=== PATIENT | female | born 1980 | race Caucasian/White ===

== ENCOUNTER 2023-09-27 19:33 | Emergency (ER) | payer OTHER, SELFPAY ==
[2023-09-27 19:43] VITALS: BP 158/89
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
[2023-09-27] MEDS: MOTRIN 800 MG PO (21:42)
== END 2023-09-27 21:46 | disposition home or self-care (01) ==
LOC: EMR 19:33
PROVIDERS: EMERGENCY PHYSICIAN Emergency Medicine
DX: S89.92XA Unspecified injury of left lower leg, initial encounter (principal); S80.212A Abrasion, left knee, initial encounter; M25.462 Effusion, left knee; M25.551 Pain in right hip; Y09 Assault by unspecified means; Y93.89 Activity, other specified; Y92.149 Unspecified place in prison as the place of occurrence of the external cause; Y99.0 Civilian activity done for income or pay; R03.0 Elevated blood-pressure reading, without diagnosis of hypertension; D68.51 Activated protein C resistance
CPT/HCPCS: 99283; 73502; 73564

== ENCOUNTER 2024-10-30 14:27 | Emergency (ER) | payer OTHER, SELFPAY ==
[2024-10-30 14:29] VITALS: BP 135/96
--- NOTE | 2024-10-30 15:27 | ED.GENMED ---
History of Present Illness
General
Chief Complaint: Musculo-Skeletal Complaint
Source: patient
Time Seen by Provider: 10/30/24 15:17
History of Present Illness
History of Present Illness:
43-year-old female with past medical history of factor V Leiden deficiency presenting to the emergency department for evaluation after she was walking down steps and did not realize there was a wet floor underneath her causing her left knee to
buckle now with pain along the medial portion of the left knee. Patient's main concern is that she had ACL repair done in this same knee 1 year ago at [facility]. This injury also occurred at work. Patient has been able to ambulate since. No other
injuries were sustained.
Past History
Past History
ED Past Medical History: Other (Factor V deficiency)
ED Past Surgical History: None
Social History
Tobacco: Non-smoker
Alcohol: Occasional
Drug: None
Living: with family
Employment: Employed
Review of Systems
Review of Systems
All Other Systems: ROS reviewed and negative except as documented in HPI and ROS
Phy Exam
Physical Exam
Physical Exam:
GENERAL: Alert , in no apparent distress
EYE: conjunctiva clear
Head: Normocephalic atraumatic
NECK: Supple,
ENT: mmm.
LUNGS: no acute respiratory distress
NEUROLOGICAL: Alert and oriented
SKIN: Warm and dry, skin intact.
MUSCULOSKELETAL: Left knee: No obvious deformity, erythema, edema, ecchymosis, abrasion or laceration. Patient allows for full range of motion. No laxity of the joint. Extremity is otherwise warm and well-perfused. Patellar and quadriceps tendon
intact. There is mild tenderness along the medial portion of the patella
PSYCH: Normal and appropriate interaction.
Scores
Heart Failure Risk
Heart Failure Risk Score: Not Applicable
Heart Score for Chest Pain Patients
STEMI patient?: Not applicable
Withdrawal Assessment of Alcohol
Withdrawal Assessment Completed?: Not applicable
Course
Orders/Labs/Results
Orders:
Orders
10/30/24 14:32
CR Knee - Left 4 Or More View* Urgent
Comment:
Reason For Exam: injury
10/30/24 15:27
Knee Immobilizer Left-Treatmen ONCE
Vital Signs
Initial and Last Documented VS:
Initial Vital Signs
Temp Pulse Resp BP
98.0 F 75 20 135/96
10/30/24 14:29 10/30/24 14:29 10/30/24 14:29 10/30/24 14:29
Last Documented Vital Signs
Temp Pulse Resp BP
98.0 F 75 20 135/96
10/30/24 14:29 10/30/24 14:29 10/30/24 14:29 10/30/24 14:29
MDM/Problems Addressed
Differential Diagnosis Includes:
Knee sprain
Meniscal injury
Fracture
Patellar dislocation/subluxation
Tendon injury
MDM/Problems Addressed:
43-year-old female presenting to the ER for evaluation of left knee pain following an accidental slip and twisting of her left knee. Patient's main area of concern is previous ACL tear with surgical repair in the same left knee about 1 year ago.
X-ray ordered shows no acute fracture. Will place patient in a knee immobilizer for support. Discussed with patient that since injury happened at work she will need to follow-up employee health. Patient may need more advanced imaging for further
diagnosis. She declines anything for pain. Patient otherwise stable for discharge home
*Radiology
Radiology exam reviewed: preliminary read by ED provider (No acute fx)
*Pulse Oximetry
SaO2: 98
Oxygen Mode of Delivery: Room air
Patient hypoxic: no
*Critical Care Note
Total Time (30-74mins, 75-104mins- exclusive of procedures): Not Applicable
ED Attending Note
-
Portions of this chart may have been created with voice recognition software.� Occasional wrong word or��sound alike� substitutions may have occurred due to the inherent limitations of voice recognition software.
Discharge Plan
Departure
Patient Disposition: Home (Routine Discharge)
Date of Disposition: 10/30/24
Time of Disposition: 15:27
Patient with high blood pressure during this ER visit?: Yes
Discharge Problem:
Left knee pain
Instructions: Knee Sprain (DC)
Referrals:
Scott Lemons DO [Family Provider, Family Practice]
Interventions
Interventions:
*General Assessment Last Done: 10/30/24 14:29
Discharge Date and Time
Print Language: SAUDI ARABIAN
== END 2024-10-30 15:53 | disposition home or self-care (01) ==
LOC: EMR 14:27
PROVIDERS: EMERGENCY PHYSICIAN Emergency Medicine; FAMILY PHYSICIAN Family Medicine Sports Medicine
DX: M25.562 Pain in left knee (principal); D68.51 Activated protein C resistance
CPT/HCPCS: 29505; 99283; 73564